=== PATIENT | female | born 1965 | race Caucasian/White ===

== ENCOUNTER 2016-06-13 12:26 | Emergency (ER) | payer OTHER ==
[~2016-06-13] VITALS: Ht 172.7 cm; Wt 82.1 kg
--- NOTE | 2016-06-13 12:50 | ED GENERAL ADULT ---
See Addendum History of Present Illness General Chief Complaint: General Adult Stated Complaint: PT BEEN VOMITING ,SHAKING,FEVER Source: patient Exam Limitations: clinical condition Allergies Coded Allergies: No Known Allergies (06/13/16) Reconcile Medications Amoxicillin 875 MG TABLET 1 TAB PO BID cellulitis Hydrocodone/Acetaminophen (Vicodin 5-300 MG Tablet) 5 MG-300 MG TABLET 1 TAB PO Q6 PRN pain Sulfamethoxazole/Trimethoprim (Bactrim Ds Tablet) 800 MG-160 MG TABLET 1 TAB PO BID INFECTION Triage Note: 50 Y/O FEMALE COMES INTO TRIAGE SOBBING; STATES SHE WENT TO BED WITH MIGRAINE AND WOKE TODAY WITH CONTINUED HEADACHE, "SHAKING", N/V/D. STATES SHE WAS "FINE" DURING THE DAY YESTERDAY. AFEBRILE. BLANKET PROVIDED PER REQUEST Triage Nurses Notes Reviewed? yes HPI: Patient is a 50-year-old female presents complaining of nausea, diarrhea, left lower extremity pain, headaches. Patient reports she had mild symptoms last night, symptoms significant only worsened since 11 AM this morning. Severe pain to the left lower extremity and a burning sensation that feels similar to when patient had cellulitis in the past. Patient noticed redness today to the left lower extremity. Nausea with dry heaving. 5 episodes of diarrhea today. Headache onset today. Positive subjective fevers and chills. (JESSY CRAVEN) Vital Signs & Intake/Output Vital Signs & Intake/Output Vital Signs Date Time Temp Pulse Resp B/P Pulse O2 O2 Flow FiO2 Ox Delivery Rate 06/13 1939 98.0 105 20 99/52 96 Room Air 06/13 1828 98.9 89 16 102/55 99 Room Air 06/13 1516 100.7 97 20 162/74 96 Room Air 06/13 1315 98.1 06/13 1232 98.7 119 18 135/73 98 Room Air ED Intake and Output 06/14 0000 06/13 1200 Intake Total 1100 Output Total Balance 1100 Intake, IV 1100 Patient 181 lb Weight Past History Travel History Traveled to [place] past 21 day No Medical History Any Pertinent Medical History? 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 No (JESSY CRAVEN) Review of Systems Review of Systems Constitutional: Reports: chills, fever, weakness. EENTM: Reports: no symptoms. Respiratory: Denies: cough, short of breath. Cardiovascular: Denies: chest pain. GI: Reports: diarrhea, nausea. Denies: abdominal pain. Genitourinary: Reports: no symptoms. Musculoskeletal: Reports: see HPI (left lower extremity pain). Skin: Reports: erythema (RLE). Neurological/Psychological: Reports: headache. Denies: numbness. Hematologic/Endocrine: Denies: bruising, bleeding. Immunologic/Allergic: Denies: splenectomy. (JESSY CRAVEN) Physical Exam Physical Exam General Appearance: alert, awake, crying Head: atraumatic, normal appearance Eyes: Bilateral: normal appearance, PERRL, EOMI. Ears, Nose, Throat: normal pharynx, normal ENT inspection, hearing grossly normal Neck: normal inspection, supple, full range of motion Respiratory: normal breath sounds, chest non-tender, no respiratory distress, lungs clear Cardiovascular: regular rate/rhythm Gastrointestinal: soft, non-tender Back: normal inspection, normal range of motion Extremities: erythema, warmth, tenderness left distal leg anteriorly Neurologic/Psych: awake, alert, oriented x 3 Skin: erythema, warmth, tenderness, mild swelling left lower extremity from ankle to mid leg anteriorly Lymphatic: no anterior cervical coreen Core Measures ACS in differential dx? No CVA/TIA Diagnosis: No Severe Sepsis Present: No Septic Shock Present: No (JESSY CRAVEN) Progress Differential Diagnoses I considered the following diagnoses in my evaluation of the patient: Cellulitis , necrotizing fasciitis, sepsis, migraine, DVT, superficial thrombophlebitis Diagnostic Imaging: Viewed by Me: Ultrasound. Discussed w/RAD: Ultrasound. Radiology Impression: PATIENT: CANDIDA YOUNGBLOOD PRESENT AGE: 50 PATIENT ACCOUNT NO: [id number] : 65 LOCATION: [facility] ORDERING PHYSICIAN: JESSY HODGE SERVICE DATE: 06/13/16 EXAM TYPE: US - US-UNILATERAL VENOUS DOPPLER EXAMINATION: US TRIPLEX LOWER EXTREMITY, LEFT CLINICAL INFORMATION: Erythema, pain, swelling in the left lower extremity. COMPARISON: None. TECHNIQUE: Color-flow triplex imaging with spectral analysis and compression Doppler were performed on the left lower extremity. FINDINGS: Respiratory variation, normal compression and augmented flow are noted throughout the lower extremity. The visualized common femoral vein, superficial femoral vein, profunda femoral vein, popliteal vein and mid calf peroneal and posterior tibial venous segments show no evidence of deep venous thrombosis. There is no Headley's cyst. There are a few nonspecific, prominent lymph nodes in the left groin region measuring up to 2.0 x 1.8 x 0.7 cm. IMPRESSION: Normal triplex scan without evidence of deep venous thrombosis involving the left lower extremity. DICTATED BY: HAJA VIERA MD DATE/TIME DICTATED:06/13/161430 DENTAL SURGEON:HUEY DATE/TIME TRANSCRIBED:06/13/161430 CONFIDENTIAL, DO NOT COPY WITHOUT APPROPRIATE AUTHORIZATION. <Electronically signed in Other Vendor System> SIGNED BY: HAJA VIERA MD 06/13/16 1501 Initial ED EKG: none Comments: PATIENT: CANDIDA YOUNGBLOOD PRESENT AGE: 50 PATIENT ACCOUNT NO: [id number] : 65 LOCATION: [facility] ORDERING PHYSICIAN: JESSY HODGE SERVICE DATE: 06/13/16 EXAM TYPE: US - US-UNILATERAL VENOUS DOPPLER EXAMINATION: US TRIPLEX LOWER EXTREMITY, LEFT CLINICAL INFORMATION: Erythema, pain, swelling in the left lower extremity. COMPARISON: None. TECHNIQUE: Color-flow triplex imaging with spectral analysis and compression Doppler were performed on the left lower extremity. FINDINGS: Respiratory variation, normal compression and augmented flow are noted throughout the lower extremity. The visualized common femoral vein, superficial femoral vein, profunda femoral vein, popliteal vein and mid calf peroneal and posterior tibial venous segments show no evidence of deep venous thrombosis. There is no Headley's cyst. There are a few nonspecific, prominent lymph nodes in the left groin region measuring up to 2.0 x 1.8 x 0.7 cm. IMPRESSION: Normal triplex scan without evidence of deep venous thrombosis involving the left lower extremity. DICTATED BY: HAJA VIERA MD DATE/TIME DICTATED:06/13/161430 DENTAL SURGEON:HUEY DATE/TIME TRANSCRIBED:06/13/161430 CONFIDENTIAL, DO NOT COPY WITHOUT APPROPRIATE AUTHORIZATION. <Electronically signed in Other Vendor System> SIGNED BY: HAJA VIERA MD 1501 (JESSY CRAVEN) Plan of Care: Orders Procedure Date/time Status LACTIC ACID 06/13 1614 Complete Add-on Test (ER Only) 06/13 1547 Active ETHANOL 06/13 1340 Complete BLOOD CULTURE 06/13 1314 Active LACTIC ACID 06/13 1314 Complete COMPREHENSIVE METABOLIC PANEL 06/13 1314 Complete CBC WITHOUT DIFFERENTIAL 06/13 1314 Complete Laboratory Tests 06/13/16 1625: Lactic Acid 0.9 06/13/16 1340: Anion Gap 12, Estimated GFR > 60, BUN/Creatinine Ratio 20.0, Glucose 181 H, Lactic Acid 2.6 H, Calcium 10.3 H, Total Bilirubin 1.1, AST 27, ALT 30, Alkaline Phosphatase 95, Total Protein 7.7, Albumin 4.9, Globulin 2.8, Albumin/ Globulin Ratio 1.8, CBC w Diff MAN DIFF ORDERED, RBC 4.48, MCV 84.0, MCH 27.7, RDW 16.4 H, MPV 9.9, Gran % 95.0 H, Lymphocytes % 2.7 L, Monocytes % 2.1, Eosinophils % 0.1, Basophils % 0.1, Absolute Granulocytes 9.6 H, Segmented Neutrophils 94 H, Band Neutrophils 5, Absolute Lymphocytes 0.3 L, Lymphocytes 1 L, Absolute Monocytes 0.2, Absolute Eosinophils 0, Absolute Basophils 0, Platelet Estimate ADEQUATE, Normocytic RBCs VERIFIED, Normochromic RBCs VERIFIED , PUBS MCHC 33.0, Serum Alcohol < 10.0 Microbiology 06/13 1357 BLOOD: Blood Culture - RECD 06/13 1340 BLOOD: Blood Culture - RES GRAM POSITIVE COCCI 1500: Patient resting more comfortably. Discussed results of testing. Patient drowsy, falling asleep during discussion, but easily arousable. IV unasyn ordered for cellulitis 1809: Patient becoming more alert. Discussed results of labs and imaging. She wants to go home. Patient was administered a dose of IV antibiotics, is nontoxic appearing at this time. The border was drawn at the margin of the cellulitis, patient instructed to return immediately if cellulitis worsening and follow up with her primary doctor early next week for further evaluation. (JESSY CRAVEN) Comments: 06/14/16 1130: Patient is growing gram-positive cocci in pairs and clusters in 1 out of 2 bottles of her blood culture. Patient has been called and message left asking for her to call me back to discuss lab results. (DIONNA MITCHELL,SOHA Gavin) Departure Departure Disposition: HOME OR SELF CARE Condition: Stable Clinical Impression Primary Impression: Cellulitis Qualifiers: Site of cellulitis: extremity Site of cellulitis of extremity: lower extremity Laterality: left Qualified Code: L03.116 - Cellulitis of left lower limb Referrals: SARAH STEPHENS (PCP/Family) Additional Instructions: Follow up with your primary doctor on Thursday or Thursday for recheck and further evaluation. Return to the ER immediately if redness spreading, fevers, increasing pain or worsening of symptoms. Departure Forms: Customer Survey General Discharge Information Prescriptions: Current Visit Scripts Amoxicillin 1 TAB PO BID #14 TAB Sulfamethoxazole/Trimethoprim (Bactrim Ds Tablet) 1 TAB PO BID #14 TAB Hydrocodone/Acetaminophen (Vicodin 5-300 MG Tablet) 1 TAB PO Q6 PRN pain #10 TAB (JESSY CRAVEN) PA/PULL UP HAND Co-Sign Statement Statement: ED Attending supervision documentation- [X] I saw and evaluated the patient. I have also reviewed all the pertinent lab results and diagnostic results. I agree with the findings and the plan of care as documented in the PA's/PULL UP HAND's documentation. [X] I have reviewed the ED Record and agree with the PA's/PULL UP HAND's documentation. [] Additions or exceptions (if any) to the PAs/PULL UP HAND's note and plan are summarized below: [] (CHRIS MITCHELL,DANNI) Critical Care Note Critical Care Note Critical Care Time: non-applicable (JESSY CRAVEN)
[2016-06-13 14:01] LABS: ABSOLUTE BASOPHIL COUNT 0 /CUMM (0.0-0.2); ABSOLUTE EOSINOPHIL COUNT 0 /CUMM (0.0-0.7); ABSOLUTE GRANULOCYTE CT 9.6 /CUMM (1.4-6.5); ABSOLUTE LYMPH COUNT 0.3 /CUMM (1.2-3.4); ABSOLUTE MONOCYTE COUNT 0.2 /CUMM (0.10-0.60); BASOPHIL % 0.1 % (0.0-2.0); EOSINOPHIL % 0.1 % (0-5); HEMATOCRIT 37.6 % (37-47); MEAN CORPUSCULAR HGB 27.7 PG (27.0-31.0); MEAN PLATELET VOLUME 9.9 FL (7.4-10.4); PLATELET COUNT 227 /CUMM (130-400); RBC DISTRIBUTION WIDTH 16.4 % (11.5-14.5); RED BLOOD CELL CT 4.48 /CUMM (4.20-5.40); WHITE BLOOD CELL COUNT 10.1 /CUMM (4.8-10.8)
--- NOTE | 2016-06-13 15:01 | ULTRASOUND REPORT ---
EXAMINATION: US TRIPLEX LOWER EXTREMITY, LEFT CLINICAL INFORMATION: Erythema, pain, swelling in the left lower extremity. COMPARISON: None. TECHNIQUE: Color-flow triplex imaging with spectral analysis and compression Doppler were performed on the left lower extremity. FINDINGS: Respiratory variation, normal compression and augmented flow are noted throughout the lower extremity. The visualized common femoral vein, superficial femoral vein, profunda femoral vein, popliteal vein and mid calf peroneal and posterior tibial venous segments show no evidence of deep venous thrombosis. There is no Headley's cyst. There are a few nonspecific, prominent lymph nodes in the left groin region measuring up to 2.0 x 1.8 x 0.7 cm. IMPRESSION: Normal triplex scan without evidence of deep venous thrombosis involving the left lower extremity.
[2016-06-13] MEDS ORDERED: TRAMADOL HCL50 M1 PO (18:52)
[2016-06-13] MEDS ORDERED: BACTRIM DS TAB1 EACH PO (18:52)
[2016-06-13] MEDS ORDERED: AMOXICILLIN875 M1 PO (18:52)
[2016-06-13] MEDS ORDERED: VICODIN 5-3001 EACH PO (18:53)
[2016-06-13 19:39] VITALS: BP 99/52
== END 2016-06-13 19:40 ==
LOC: ERH 12:26
PROVIDERS: Physician Assistant
DX: L03.116 Cellulitis of left lower limb (principal)
CPT/HCPCS: 87040; 87147; 96374; 96375; G0480; J0131; J2550

== ENCOUNTER 2016-06-14 13:31 | Emergency (ER) | payer OTHER ==
[~2016-06-14] VITALS: Ht 172.7 cm; Wt 81.6 kg
[~2016-06-14 13:31] MED LIST: AMOXICILLIN875 M1 PO; BACTRIM DS TAB1 EACH PO; TRAMADOL HCL50 M1 PO; VICODIN 5-3001 EACH PO
--- NOTE | 2016-06-14 13:36 | ED GENERAL ADULT ---
History of Present Illness General Chief Complaint: General Adult Stated Complaint: SENT BY PCP FOR BLOODWORK Source: patient, old records Exam Limitations: no limitations Vital Signs & Intake/Output Vital Signs & Intake/Output Vital Signs Date Time Temp Pulse Resp B/P Pulse O2 O2 Flow FiO2 Ox Delivery Rate 06/14 1338 97.6 102 18 107/58 99 Room Air Allergies Coded Allergies: No Known Allergies (06/13/16) Reconcile Medications Amoxicillin 875 MG TABLET 1 TAB PO BID cellulitis Hydrocodone/Acetaminophen (Vicodin 5-300 MG Tablet) 5 MG-300 MG TABLET 1 TAB PO Q6 PRN pain Sulfamethoxazole/Trimethoprim (Bactrim Ds Tablet) 800 MG-160 MG TABLET 1 TAB PO BID INFECTION Triage Nurses Notes Reviewed? yes HPI: Patient was seen in the emergency department yesterday and diagnosed with cellulitis. I received a phone call from microbiology stating that one out of 2 blood cultures are all gram-positive cocci in pairs and clusters. The patient was contacted and asked to return to the emergency department for evaluation. Patient states that she is feeling much better. Past History Travel History Traveled to [place] past 21 day No Medical History Any Pertinent Medical History? 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 No Review of Systems Review of Systems Constitutional: Reports: no symptoms. Respiratory: Reports: no symptoms. Cardiovascular: Reports: no symptoms. GI: Reports: no symptoms. Skin: Reports: see HPI. Immunologic/Allergic: Reports: no symptoms. Physical Exam Physical Exam General Appearance: well developed/nourished, alert, awake Head: atraumatic Eyes: Bilateral: PERRL, EOMI. Respiratory: normal breath sounds, chest non-tender, no respiratory distress, lungs clear Cardiovascular: regular rate/rhythm, normal peripheral pulses, NO MURMUR Neurologic/Psych: no motor/sensory deficits, awake, alert, oriented x 3, normal gait, normal mood/affect Core Measures ACS in differential dx? No CVA/TIA Diagnosis: No Severe Sepsis Present: No Septic Shock Present: No Progress Differential Diagnoses I considered the following diagnoses in my evaluation of the patient: [Positive blood culture] Plan of Care: Orders Procedure Date/time Status BLOOD CULTURE 06/14 1333 Active CBC WITHOUT DIFFERENTIAL 06/14 1333 Complete Laboratory Tests 06/14/16 1343: CBC w Diff NO MAN DIFF REQ, RBC 4.09 L, MCV 83.8, MCH 27.6, RDW 17.1 H, MPV 9.7, Gran % 94.0 H, Lymphocytes % 4.4 L, Monocytes % 1.5 L, Eosinophils % 0, Basophils % 0.1, Absolute Granulocytes 7.9 H, Absolute Lymphocytes 0.4 L, Absolute Monocytes 0.1 L, Absolute Eosinophils 0, Absolute Basophils 0, PUBS MCHC 33.0 Microbiology 06/14 1350 BLOOD: Blood Culture - RECD 06/14 134 BLOOD: Blood Culture - RECD Initial ED EKG: none Departure Departure Disposition: HOME OR SELF CARE Condition: Stable Clinical Impression Primary Impression: Cellulitis Referrals: SARAH STEPHENS (PCP/Family) Additional Instructions: CONTINUE CURRENT TREATMENTS RETURN FOR ANY CONCERNS Departure Forms: Customer Survey General Discharge Information Critical Care Note Critical Care Note Critical Care Time: non-applicable
[2016-06-14 13:38] VITALS: BP 107/58
[2016-06-14 14:06] LABS: ABSOLUTE BASOPHIL COUNT 0 /CUMM (0.0-0.2); ABSOLUTE EOSINOPHIL COUNT 0 /CUMM (0.0-0.7); ABSOLUTE GRANULOCYTE CT 7.9 /CUMM (1.4-6.5); ABSOLUTE LYMPH COUNT 0.4 /CUMM (1.2-3.4); ABSOLUTE MONOCYTE COUNT 0.1 /CUMM (0.10-0.60); BASOPHIL % 0.1 % (0.0-2.0); EOSINOPHIL % 0 % (0-5); HEMATOCRIT 34.3 % (37-47); MEAN CORPUSCULAR HGB 27.6 PG (27.0-31.0); MEAN CORPUSCULAR VOLUME 83.8 FL (81.0-99.0); MEAN PLATELET VOLUME 9.7 FL (7.4-10.4); PLATELET COUNT 176 /CUMM (130-400); RBC DISTRIBUTION WIDTH 17.1 % (11.5-14.5); RED BLOOD CELL CT 4.09 /CUMM (4.20-5.40); WHITE BLOOD CELL COUNT 8.4 /CUMM (4.8-10.8)
== END 2016-06-14 14:24 ==
LOC: ERH 13:31
PROVIDERS: Emergency Medicine
DX: L03.90 Cellulitis, unspecified (principal)
CPT/HCPCS: 87040